=== PATIENT | male | born 1960 | race Caucasian/White ===

== ENCOUNTER 2018-04-18 10:15 | Outpatient (CLI) | payer BC ==
--- NOTE | 2018-04-18 16:11 | MRI ---
MRI OF THE LUMBAR SPINE WITHOUT CONTRAST: 04/18/18 COMPARISON: 08/28/14. HISTORY: Lumbar radiculopathy. Chronic low back pain with history of spinal stenosis. Previous surgery. TECHNIQUE: MRI lumbar spine is performed without intravenous gadolinium administration. Multisequential, multipl jarocho imaging is performed. FINDINGS: There is progression of degenerative changes at L4-L5 with type I Modic change. 2.6 mm of anterolisth esis of L3 upon L4. Beyond the type I Modic change, appropriate T1 marrow signal intensity of the lum bar vertebrae. No evidence of ligamentous injury. Appropriate signal intensity of the paraspinal and psoas muscles. The visualized kidneys have appropriate signal intensity. Conus medullaris terminates at the inferior aspect of T12. T12-L1: No high grade central canal stenosis or high grade foraminal narrowing. L1-L2: Stable disc space height. No high grade central canal stenosis. Neural foramina are patent. L2-L3: Adequate disc hydration. No significant loss of disc space height. Generalized disc bulge, lig amentum flavum thickening and facet hypertrophy result in mild central canal stenosis, unchanged. Mod erate bilateral neural foraminal narrowing. L3-L4: Adequate disc hydration. No significant loss of disc space height. Broad based disc bulge, lig amentum flavum thickening and facet hypertrophy result in moderate to severe central canal stenosis. The degree of central canal stenosis has slightly changed when compared to the previous examination. Moderate to severe right and severe left foraminal narrowing. L4-L5: Severe loss of disk space height. There is a broad-based disk bulge, ligamentum flavum thick ening, and facet hypertrophy that results in severe central canal stenosis. Moderate to severe bilat eral foraminal narrowing. When compared to the previous examination, the degree of central canal tiffany nosis has progressed, predominantly due to posterior element hypertrophy and, to a lesser extent, dis k material. L5-S1: Laminectomy defect. Posterior element hypertrophy and disc material are present. There is angie re central canal stenosis. Severe right and left foraminal narrowing. Fluid in both facet joints is n oted. IMPRESSION: 1. Severe central canal stenosis at L4-5 and severe central canal stenosis at L5-S1. Significant neural foraminal narrowing at these levels. 2. Laminectomy defect at L5-S1. POS: [facility]
== END 2018-04-18 10:16 | disposition home or self-care (01) ==
LOC: BICMRI 10:15
PROVIDERS: ATTEND Neurological Surgery
DX: M54.16 Radiculopathy, lumbar region (principal); M48.061 Spinal stenosis, lumbar region without neurogenic claudication; M48.07 Spinal stenosis, lumbosacral region; Z98.890 Other specified postprocedural states
CPT/HCPCS: 72148

== ENCOUNTER 2018-05-29 05:42 | Observation (INO) | payer BC ==
[2018-05-26 10:39] VITALS: BMI 34.8
[2018-05-29] MEDS ORDERED: Sodium Chloride 0.9% 10 ML ONE (06:34)
[2018-05-29 06:37] LABS: #Basophils 0.1 thou/uL (0.0-0.2); #Eosinphils 0.2 thou/uL (0.0-0.7); #Lymphocytes 2.9 thou/uL (1.20-3.40); #Neutrophils 6.1 thou/uL (1.40-6.50); %Basophils 0.9 % (0.0-1.0); %Eosinophils 2.4 % (0.0-10.0); %Lymphocytes 27.9 % (21.0-51.0); %Monocytes 9.4 % (0.0-10.0); %Neutrophils 59.4 % (42.0-75.0); Hemoglobin 14.6 g/dL (14.0-18.0); Mean Corpuscular HGB CONC 32.5 g/dL (32.0-36.0); Mean Corpuscular Hemoglobin 27.1 pg (27.0-31.0); Mean Corpuscular Volume 83.2 fL (78.0-98.0); Mean Platelet Volume 7.3 fL (7.4-10.4); Platelet Count 259 thou/uL (130-400); RBC Distribution Width 13.4 % (11.5-14.5); Red Blood Cell (RBC) Count 5.39 mill/uL (4.70-6.10); White Blood Cell (WBC) Count 10.2 thou/uL (4.8-10.8)
[2018-05-29 06:48] LABS: Anion Gap 12 mmol/L (10-20); BUN (Urea Nitrogen) 15 mg/dL (8.4-25.7); Calc. Creatinine Clearance 159 mL/min (70-130); Calcium 9.9 mg/dL (7.8-10.44); Carbon Dioxide 27 mmol/L (22-29); Chloride 103 mmol/L (98-107); Estimated GFR-MDRD Greater than 90; Glucose 117 mg/dL (70-105); Potassium 3.8 mmol/L (3.5-5.1); Sodium 138 mmol/L (136-145)
[2018-05-29] MEDS ORDERED: Fentanyl 100 MCG/2 ML VIAL ONE (06:51)
[2018-05-29] MEDS ORDERED: Ketamine 50 MG/ML (10ML VIAL) ONE (07:14)
[2018-05-29] MEDS ORDERED: HYDROmorphone 2 MG/ML VIAL ONE ×2 (07:15→10:50)
--- NOTE | 2018-05-29 10:10 | OP ---
DATE OF PROCEDURE: 05/29/2018 MOTORBOAT MECHANIC HELPER: Antoni Gimenez PA-C PROCEDURES PERFORMED: L3 to S1 decompressive laminectomy, posterolateral arthrodesis, demineralized bone matrix, local morselized autograft, pedicle screw instrumentation L4 to S1. DESCRIPTION OF PROCEDURE: The patient was brought to the operating room and intubated. He was rolled in a prone position on gel-filled chest rolls. The previous incision was reopened and extended superiorly and inferiorly exposing L3 through S1. We performed complete L4 laminectomy, inferior L3 laminectomy, and lateral recess laminectomy at L4-L5 and L5-S1. The patient had dramatic and extensive facet arthropathy and stenosis. A complete decompression was achieved. We next placed pedicle screws at left L4, L5, and S1 using lateral fluoroscopic guidance. The loreto was secured between the screws, connected by nuts, which were final tightened. The wound was then extensively irrigated and maximum hemostasis were secured. A combination of demineralized bone matrix and local morselized autograft was laid over the right lamina and posterolateral surfaces for the purpose of arthrodesis. Vancomycin powder was applied and the wound was then closed in anatomic layers. Job ID: [id number]
[2018-05-29] MEDS ORDERED: Promethazine HCl 25 MG/ML VIAL IM PRN (12:06)
[2018-05-29] MEDS ORDERED: Mag-Al 1200 mg/1200 mg/30 ML UDCUP PO PRN (12:06)
[2018-05-29] MEDS ORDERED: Promethazine 25 MG TAB PO PRN (12:06)
[2018-05-29] MEDS ORDERED: Promethazine HCl 12.5 MG SUPP PR PRN (12:06)
[2018-05-29] MEDS ORDERED: HYDROcodone/Acetaminophen 10/325 mg Tablet PO PRN ×2 (12:06)
[2018-05-29] MEDS ORDERED: Morphine 4 MG/ML VIAL SLOW IVP PRN (12:06)
[2018-05-29] MEDS ORDERED: diphenhydrAMINE 50 MG/ML VIAL IVP PRN (12:06)
[2018-05-29] MEDS ORDERED: tiZANidine HCl 4 MG TAB PO PRN (12:06)
[2018-05-29] MEDS ORDERED: traMADol HCl 50 MG TAB PO PRN (12:06)
[2018-05-29] MEDS ORDERED: Milk Of Magnesia 30 ML UDCUP PO PRN (12:06)
[2018-05-29] MEDS ORDERED: diphenhydrAMINE 25 MG CAP PO PRN (12:06)
[2018-05-29] MEDS ORDERED: Morphine 2 MG/ML SYRINGE SLOW IVP PRN (12:07)
[2018-05-29] MEDS ORDERED: Ondansetron PF 4 MG/2 ML Vial IVP PRN (12:08)
[2018-05-29] MEDS: Sodium Chloride 0.9% 1,000 ML IV SCH (12:30)
[2018-05-29] MEDS: traMADol HCl 50 MG TAB PO PRN ×2 (13:40→21:03)
[2018-05-29] MEDS ORDERED: CEFAZOLIN 2 GM in Premix Bag 1 BAG IVPB SCH (14:00)
[2018-05-29] MEDS: CEFAZOLIN 2 GM in Premix Bag 1 BAG IVPB SCH ×2 (15:22→21:04)
[2018-05-29] MEDS ORDERED: PROPOFOL 200 MG/20 ML VIAL ONE (16:01)
[2018-05-29] MEDS ORDERED: Dexamethasone 20 MG/5 ML VIAL ONE (16:01)
[2018-05-29] MEDS ORDERED: Ondansetron PF 4 MG/2 ML Vial ONE (16:01)
[2018-05-29] MEDS ORDERED: PHENYLEPHRINE-NS 100 MCG/ML 10 ML SYRINGE ONE (16:01)
[2018-05-29] MEDS ORDERED: ePHEDrine 50 MG/ML VIAL ONE (16:01)
[2018-05-29] MEDS ORDERED: Lidocaine 1% PF 5 ML VIAL ONE (16:01)
[2018-05-29] MEDS ORDERED: Glycopyrrolate 0.2 MG/ML 5 ML SYRINGE ONE (16:01)
[2018-05-29] MEDS ORDERED: Rocuronium Bromide 10 MG/ML (10ML VIAL) ONE (16:01)
[2018-05-29] MEDS ORDERED: Metoclopramide HCl 10 MG/2 ML VIAL ONE (16:01)
[2018-05-29] MEDS ORDERED: Tamsulosin HCl 0.4 MG CAP PO SCH (19:45)
[2018-05-30] MEDS: traMADol HCl 50 MG TAB PO PRN (03:39)
[2018-05-30] MEDS: Sodium Chloride 0.9% 1,000 ML IV SCH ×2 (03:54→15:59)
[2018-05-30] MEDS ORDERED: CEFAZOLIN 2 GM in Premix Bag 1 BAG IVPB SCH (05:45)
[2018-05-30] MEDS: CEFAZOLIN 2 GM in Premix Bag 1 BAG IVPB SCH ×3 (06:06→21:33)
--- NOTE | 2018-05-30 06:32 | PRG ---
DATE OF SERVICE: 05/30/2018 SUBJECTIVE: The patient is a 57-year-old male, status post L3 to S1 decompression and L4 to S1 fusion. Following the surgery, he was transitioned to the Med/Surg floor, where his pain has been well controlled with p.o. medications. He did initially have some difficulty with urination, but was treated with p.o. Flomax with resolution. He is now urinating without difficulty on his own. He has had some mild incisional drainage issues requiring bandage replacement by the nurses. His ANTHONY drain put out 135 mL overnight. He is tolerating regular diet. OBJECTIVE: GENERAL: This morning, on exam, the patient is awake, alert, comfortable, in no acute distress. EXTREMITIES: He has free active range of motion of all extremities. No focal motor weakness. His incisional dressing does have some dark dried red blood. However, there is no active drainage appreciated. There is dark red blood in the ANTHONY bulb. ASSESSMENT AND PLAN: We will plan to continue to monitor the patient and mobilize with assistance of Physical Therapy. We will leave ANTHONY drain in place another night. The patient should continue to receive IV antibiotics during this time. I anticipate removal and discharge home likely tomorrow. Job ID: [id number]
[2018-05-30] MEDS: Tamsulosin HCl 0.4 MG CAP PO SCH (09:29)
[2018-05-30] MEDS ORDERED: hydrALAZINE 20 MG/ML VIAL SLOW IVP PRN (15:28)
[2018-05-30] MEDS ORDERED: Dextrose 50% Abboject 50 ML SYRINGE SLOW IVP PRN (15:29)
[2018-05-30] MEDS ORDERED: HumaLOG 300 UNITS/3 ML VIAL SC PRN (15:29)
[2018-05-30] MEDS ORDERED: Dextrose 5% in Water 1,000 ML IV PRN (15:29)
--- NOTE | 2018-05-30 15:56 | CON ---
DATE OF CONSULTATION: 05/30/2018 PRIMARY CARE PROVIDER: Dr. Maxime David. CHIEF COMPLAINT: Hypertension. HISTORY OF PRESENT ILLNESS: Mr. Duncan is a pleasant 57-year-old gentleman, who was seen at [facility] on May 30, 2018, for management of medical comorbidities including hypertension. He denies any chest pain or shortness of breath. He denies any fevers or chills. He denies any nausea or vomiting. He denies any abdominal pain. Yesterday, he underwent L3-S1 decompressive laminectomy, posterolateral arthrodesis, demineralized bone matrix, local morselized autograft, and pedicle screw instrumentation L4-S1. REVIEW OF SYSTEMS: All other systems reviewed and found to be negative. PAST MEDICAL HISTORY: Hypertension, diabetes mellitus, benign prostatic hypertrophy. PAST SURGICAL HISTORY: Back surgery, neck surgery, right knee surgery, umbilical hernia repair. SOCIAL HISTORY: The patient denies tobacco use, alcohol use, or recreational drug use. FAMILY HISTORY: Hypertension in both parents. ALLERGIES: NO KNOWN DRUG ALLERGIES. HOME MEDICATIONS: 1. [place] p.r.n. 2. Tizanidine p.r.n. 3. Tylenol 650 mg 2 times a day. 4. Aspirin 81 mg daily. 5. Atenolol/chlorthalidone 50/25 mg daily. 6. Cephalexin 500 mg four times a day. 7. Fenofibrate 48 mg daily. 8. Gabapentin 200 mg 3 times a day. 9. Glucosamine/MSM complex two capsules daily. 10. Lisinopril 10 mg daily. 11. Meloxicam 15 mg daily. 12. Metformin 500 mg 2 times a day. 13. Multivitamins one tablet daily. 14. [place]-3 fatty acids three capsules daily. 15. Red yeast rice two capsules daily. 16. Tamsulosin 0.4 mg daily. 17. Tramadol p.r.n. 18. Ostera tablet, one tablet daily. PHYSICAL EXAMINATION: GENERAL: On examination, Mr. Duncan is awake and alert, not in acute distress. VITAL SIGNS: Blood pressure is 115/71, pulse 86, respiratory rate 16, and oxygen saturation 94% on room air. He is afebrile. He is obese, with a BMI of 34.9. EYES: No scleral icterus, no conjunctival pallor. ENT: Moist mucosal membranes. No oropharyngeal erythema or exudates. NECK: Supple, nontender, trachea is midline. RESPIRATORY: Accessory muscles of breathing are not active. Chest wall movements are symmetric bilaterally. Clear to auscultation without wheeze, rhonchi, or crepitations. CARDIOVASCULAR: S1 and S2 are heard, regular. Peripheral pulses palpable. No carotid bruit. No pericardial rub. ABDOMEN: Soft, nontender, bowel sounds are heard. NEUROLOGIC: Cranial nerves 2 through 12 are intact. MUSCULOSKELETAL: Power is 5/5 in all 4 extremities. Status post back surgery. SKIN: No rashes or subcutaneous nodules. LYMPHATIC: No cervical lymphadenopathy. PSYCHIATRIC: Normal mood, normal affect, the patient is oriented to person, place, and time. LABORATORY DATA: Mr. Duncan's labs and investigations were reviewed. He has an unremarkable CBC and an unremarkable chem-7. ASSESSMENT AND PLAN: Mr. Duncan is a pleasant 57-year-old gentleman, who was seen at [facility] on May 30, 2018 for management of medical comorbidities. His problem list includes: 1. Hypertension: His home medications have been resumed, blood pressure is under control. We will add p.r.n. hydralazine for any blood pressure spikes secondary to pain. 2. Benign prostate hypertrophy: Stable, home medications were resumed. 3. Diabetes mellitus type 2: We will start the patient on Accu-Cheks and insulin sliding scale. Many thanks for allowing me to participate in your patient's care. Please feel free to contact me with any questions or concerns. LEVEL OF RISK: Moderate. LEVEL OF COMPLEXITY: Moderate. Job ID: [id number]
[2018-05-30] MEDS: Gabapentin 100 MG CAP PO SCH ×2 (16:01→21:14)
--- NOTE | 2018-05-30 21:01 | EKG ---
Test Reason : PREOP Blood Pressure : / mmHG Vent. Rate : 065 BPM Atrial Rate : 065 BPM P-R Int : 200 ms QRS Dur : 102 ms QT Int : 368 ms P-R-T Axes : 007 061 038 degrees QTc Int : 382 ms Normal sinus rhythm Normal ECG No previous ECGs available Confirmed by GAURAV GRAF, DR. Gaines ([id number]) on 05/30/2018 9:01:26 PM Referred By: GIOVANI Confirmed By:DR. Liana NOLASCO MD
[2018-05-31 04:43] VITALS: TEMP 98.5
[2018-05-31] MEDS: Sodium Chloride 0.9% 1,000 ML IV SCH (04:54)
[2018-05-31] MEDS: CEFAZOLIN 2 GM in Premix Bag 1 BAG IVPB SCH (05:58)
--- NOTE | 2018-05-31 08:51 | DIS ---
DATE OF ADMISSION: 05/29/2018 DATE OF DISCHARGE: 05/31/2018 The patient is a 57-year-old male status post L3 to S1 decompression and L4 to S1 fusion. Following the surgery, he was transitioned to the Med/Surg floor, where his pain has been well controlled with p.o. medications. He was tolerating a regular diet, and he has been voiding appropriately. He did have a ANTHONY drain placed intraoperatively and has trended down nicely over the last 2 days. His overnight output was 40 mL. He has no complaints this morning and he is looking forward to going home soon. He is awake, alert, in no acute distress. Free active range of motion of all extremities. No focal motor weakness. No reflex asymmetry. ANTHONY drain in place. Small amount of serosanguinous fluid in the bulb. Incision is dry and intact. We will plan to remove the patient's ANTHONY drain. He is walking well with a walker, so we will make sure he has one of these before he is discharged home. We will plan to discharge home later today. I have discussed home care precautions and we will follow up with the patient in 2 weeks. Job ID: [id number]
[2018-05-31] MEDS ORDERED: Lisinopril 10 MG TAB PO SCH (09:00)
[2018-05-31] MEDS ORDERED: Chlorthalidone 25 MG TAB PO SCH (09:00)
[2018-05-31] MEDS ORDERED: Atenolol 50 MG TAB PO SCH (09:00)
[2018-05-31] MEDS ORDERED: Fenofibrate 48 MG TAB PO SCH (09:00)
[2018-05-31] MEDS: Gabapentin 100 MG CAP PO SCH (09:07)
[2018-05-31] MEDS: Tamsulosin HCl 0.4 MG CAP PO SCH (09:07)
[2018-05-31 09:10] VITALS: BP 121/81
== END 2018-05-31 12:35 | disposition home or self-care (01) ==
LOC: SDC 05:42 → SURG B 10:52
PROVIDERS: ADMIT Neurological Surgery; ATTEND Neurological Surgery
PROC: 0SG1071 Fusion of 2 or more Lumbar Vertebral Joints with Autologous Tissue Substitute, Posterior Approach, Posterior Column, Open Approach (ICD-10-PCS; principal; 2018-05-29)
DX: M47.816 Spondylosis without myelopathy or radiculopathy, lumbar region (principal); I10 Essential (primary) hypertension; E78.5 Hyperlipidemia, unspecified; E11.9 Type 2 diabetes mellitus without complications; N40.0 Benign prostatic hyperplasia without lower urinary tract symptoms; Z79.1 Long term (current) use of non-steroidal anti-inflammatories (NSAID); Z79.2 Long term (current) use of antibiotics; Z79.82 Long term (current) use of aspirin; Z79.84 Long term (current) use of oral hypoglycemic drugs; Z79.899 Other long term (current) drug therapy
CPT/HCPCS: 36415; 36416; 76000; 80048; 85025; 93005; 93010; 96365; 96366; C1713; C1768; G0378; J0131; J1100; J1170; J2001; J2405; J2704; J2765; J3010; J3370; J3490

== ENCOUNTER 2018-06-13 10:40 | Outpatient (CLI) | payer BC ==
--- NOTE | 2018-06-13 12:24 | RAD ---
LUMBAR SPINE: Indications: Lumbar radiculopathy. FINDINGS: Two views obtained. There are five non-rib bearing lumbar vertebrae. There are pedicle screws on the left seen transfixin g L4, L5, and L6 levels. Loss of disc space at L4-5 with a grade I spondylolisthesis. Moderately angie re degenerative changes seen with prominent anterior and lateral bridging osteophytes at all levels. Prominent facet hypertrophy. Posterior laminectomy changes at L4-5 and L5-S1. IMPRESSION: Post-operative and degenerative changes of the lumbar spine noted as described. POS: [facility]
== END 2018-06-13 10:41 | disposition home or self-care (01) ==
LOC: TBSIIMAG 10:40
PROVIDERS: ATTEND Neurological Surgery
DX: M54.16 Radiculopathy, lumbar region (principal); Z98.890 Other specified postprocedural states
CPT/HCPCS: 72100

== ENCOUNTER 2018-07-25 15:04 | Outpatient (CLI) | payer BC ==
--- NOTE | 2018-07-25 16:32 | RAD ---
LUMBAR SPINE TWO VIEWS: 07/25/18 INDICATION: Follow-up surgery. COMPARISON: Prior exam dated 06/13/18. FINDINGS: Laminectomy changes are L3, L4 and L5 are stable. Interpedicular construct on the left at L4 through S1 is stable. Instrumentation projects in the expected position. Grade I anterolisthesis of L3 on L4 is stable. Moderate multilevel disc degenerative disease and facet osteoarthritic changes stable. IMPRESSION: Stable exam. POS: [facility]
== END 2018-07-25 15:05 | disposition home or self-care (01) ==
LOC: TBSIIMAG 15:04
PROVIDERS: ATTEND Neurological Surgery
DX: M48.062 Spinal stenosis, lumbar region with neurogenic claudication (principal)
CPT/HCPCS: 72100

== ENCOUNTER 2023-09-02 13:51 | Outpatient (CLI) | payer BC | END 2023-09-02 13:52 | disposition home or self-care (01) | LOC: BICCT 13:51 | PROVIDERS: ATTEND Family Medicine | DX: Z91.89 Other specified personal risk factors, not elsewhere classified (principal) | CPT/HCPCS: 75571 ==